=== PATIENT | female | born 1985 | race Asian ===

== ENCOUNTER → 2016-12-04 | Outpatient (CLI) | payer OTHER ==
[~2016-12-04] MED LIST: DOCU100C37 PO; IBUP-1780 PO; OXYC-465 PO; PNV1TABL81 PO
== END ==
LOC: LAB 14:35
PROVIDERS: ATTEND Nurse Practitioner Women's Health
DX: Z32.00 Encounter for pregnancy test, result unknown (principal)
CPT/HCPCS: 36415; 84702

== ENCOUNTER → 2016-12-08 | Outpatient (CLI) | payer OTHER ==
--- OUTSIDE RECORDS SUMMARY | 2016-12-08 13:52 | XMS REPORT | Continuity of Care Document ---
Author Author [facility] Organization [facility] Address Unknown Phone Unavailable Allergies Active Description Code Type Severity Reaction Onset Reported/Identified Relationship to Patient Clinical Status Yes No Known Drug Allergies [id number] Drug Allergy Unknown N/ A 10/05/2015 Medications Problems Date Dx Coded Attending Type Code Diagnosis Diagnosed By 01/25/2015 MOON HERNÁNDEZ WINCH TRUCK OPERATOR Ot 628.9 01/25/2015 ABHILASH DONALD MD Ot 706.2 04/25/2015 BRITTANEY PAN, VIRGINIA Loyd Ot V72.40 EXAMINATION OR TEST, 10/05/2015 BRITTANEY PAN, [place]IA Loyd Ot V72.40 10/05/2015 MOON HERNÁNDEZ WINCH TRUCK OPERATOR Ot 628.9 10/05/2015 ABHILASH DONALD MD Ot 706.2 10/05/2015 BRITTANEY PAN, VIR[place] Loyd Ot V72.40 10/07/2015 HARLAN PAN, EMILE Diggs Ot O62.2 OTHER UTERINE INERTIA 10/07/2015 HARLAN PAN, EMILE Diggs Ot 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 10/07/2015 EMILE CLAROS MD Ot Z37.0 SINGLE LIVE 10/07/2015 HARLAN PAN, EMILE Diggs Ot Z3A.40 40 WEEKS GESTATION OF 04/25/2016 MOON HERNÁNDEZ WINCH TRUCK OPERATOR Ot 628.9 FEMALE INFERTILITY NOS 04/25/2016 ABHILASH DONALD MD Ot 706.2 SEBACEOUS CYST 04/25/2016 BRITTANEY PAN, [place] Loyd Ot V72.40 EXAMINATION OR TEST, 12/04/2016 MOON HERNÁNDEZ WINCH TRUCK OPERATOR Ot 628.9 FEMALE INFERTILITY NOS 12/04/2016 ABHILASH DONALD MD Ot 706.2 SEBACEOUS CYST 12/04/2016 BRITTANEY PAN, VIR[place]IA L Ot V72.40 EXAMINATION OR TEST, 12/05/2016 MOON HERNÁNDEZ WINCH TRUCK OPERATOR Ot Z32.00 ENCOUNTER FOR TEST, RESULT UNK Procedures Code Description Performed By Performed On [id number] EXTRACTION OF POC, LOW CERVICAL, OPEN AP 10/05/2015 [id number] INTRODUCTION OF OTH HORMONE INTO PERIPH 10/05/2015 Results Test Result Range Serum or plasma choriogonadotropin measurement (units/volume) - 12/04/16 14:48 Serum or plasma choriogonadotropin measurement (units/volume) 266 m[iU]/mL <5 Encounters ACCT No. Visit Date/Time Discharge Status Pt. Type Provider Facility Loc./Unit Complaint [id number] 10/05/2015 07:52:00 2014 16:15:00 DIS Inpatient HARLAN PAN, EMILE Diggs [facility] WS INDUCTION [id number] 04/26/2015 00:10:00 2014 23:59:59 CLS Preadmit BRITTANEY PAN, VIR[place] Loyd [facility] LAB DETECTION EXAMINATION [id number] 01/27/2015 11:26:00 2014 00:01:00 DIS Outpatient BRITTANEY PAN, [place] Loyd [facility] LAB DETECTION EXAMINATION [id number] 11/29/2014 13:24:00 2014 23:59:59 CLS Outpatient ABHILASH DONALD MD [facility] LABNPT RIGHT NECK CYST [id number] 11/20/2014 11:22:00 2014 23:59:59 CLS Outpatient MOON HERNÁNDEZ WINCH TRUCK OPERATOR [facility] LAB INFERTILITY [id number] 12/04/2016 14:35:00 ACT Outpatient MOON HERNÁNDEZ WINCH TRUCK OPERATOR [facility] LAB Z32.00 ENCOUNTER FOR TEST
[2016-12-08 15:10] LABS: THYROID STIMULATING HORMONE 1.57 UIU/ML (0.35-4.94)
== END ==
LOC: LAB 13:48
PROVIDERS: ATTEND Nurse Practitioner Women's Health
DX: Z13.29 Encounter for screening for other suspected endocrine disorder (principal); Z32.01 Encounter for pregnancy test, result positive
CPT/HCPCS: 36415; 84443; 84702